=== PATIENT | male | born 1955 | race Caucasian/White ===

== ENCOUNTER 2023-07-08 12:28 | Outpatient (CLI) | payer BC ==
[~2023-07-08 12:28] MED LIST: Magnevist 469MG/ML 20 ML VIAL ONE
== END 2023-07-08 12:29 | disposition home or self-care (01) ==
LOC: CSHMRI 12:28
PROVIDERS: ATTEND Urology
DX: C61 Malignant neoplasm of prostate (principal); M47.812 Spondylosis without myelopathy or radiculopathy, cervical region
CPT/HCPCS: 72040; 72197; 82565